=== PATIENT | female | born 1970 | race Caucasian/White ===

== ENCOUNTER 2021-01-25 07:27 | Inpatient (IN) | payer OTHER ==
[~2021-01-25] VITALS: Ht 162.6 cm; Wt 77.1 kg
[2021-01-25] MEDS ORDERED: HYDROMORPHONE 1 MG/1 ML DISP.SYRIN IV ONE (08:00)
[2021-01-25] MEDS ORDERED: ONDANSETRON 4 MG/2 ML VIAL IV ONE (08:00)
[2021-01-25] MEDS ORDERED: SWABABLE VALVE TRANSFER SET EA MC ONE (08:17)
[2021-01-25] MEDS ORDERED: IV NORMAL SALINE 250 ML IV ONE (08:18)
[2021-01-25] MEDS ORDERED: IOHEXOL 350 100 ML INFUS..BTL ONE (08:18)
[2021-01-25] MEDS ORDERED: ONDANSETRON 4 MG/2 ML VIAL ONE (09:16)
[2021-01-25] MEDS ORDERED: HYDROMORPHONE 1 MG/1 ML DISP.SYRIN ONE (09:16)
[2021-01-25 09:38] LABS: BASOPHILS % (AUTO) 0.8 % (0.0-2.0); EOSINOPHILS # (AUTO) 0.1 K/uL (0.0-0.7); HEMATOCRIT 44.2 % (31.2-41.9); HEMOGLOBIN 14.7 g/dL (10.9-14.3); LYMPHOCYTES # (AUTO) 2.2 K/uL (20.0-40.0); LYMPHOCYTES % (AUTO) 37.4 % (20.5-51.5); MEAN CORPUSCULAR HEMOGLOBIN 29.8 uug (24.7-32.8); MEAN CORPUSCULAR HGB CONC 33 g/dL (32.3-35.6); MEAN CORPUSCULAR VOLUME 89.4 fL (75.5-95.3); MONOCYTES # (AUTO) 0.5 K/uL (2.0-10.0); MONOCYTES % (AUTO) 8.9 % (0.0-11.0); NEUTROPHILS % (AUTO) 51.9 % (38.5-71.5); PLATELET COUNT (AUTO) 303 K/uL (179-408); RED BLOOD CELL COUNT(AUTO) 4.95 MIL/uL (3.63-4.92); WHITE BLOOD COUNT (AUTO) 5.8 K/uL (3.8-11.8)
[2021-01-25 09:52] LABS: CREATININE 0.7 mg/dL (0.6-1.3); POTASSIUM 4.1 mmol/L (3.5-5.1)
[2021-01-25 09:58] LABS: BILIRUBIN,DIRECT 0.1 mg/dL (0.0-0.2); BILIRUBIN,TOTAL 0.4 mg/dL (0.2-1.0); TOTAL PROTEIN, SERUM 6.8 g/dL (6.4-8.2)
[2021-01-25 12:43] LABS: *AMPHETAMINE, URINE NEGATIVE (NEGATIVE); *CANNABINOID, URINE NEGATIVE (NEGATIVE); *COCCAINE, URINE NEGATIVE (NEGATIVE); *OPIATE, URINE NEGATIVE (NEGATIVE); *PHENCYCLIDINE SCREEN,URINE NEGATIVE (NEGATIVE)
[2021-01-25] MEDS ORDERED: ASPIRIN 325 MG TABLET PO SCH (13:00)
[2021-01-25 14:00] VITALS: BP 125/87
[2021-01-25] MEDS ORDERED: ZOLPIDEM 5 MG TABLET PO PRN (14:00)
[2021-01-25] MEDS ORDERED: HYDROMORPHONE 1 MG/1 ML DISP.SYRIN IV PRN (14:00)
[2021-01-25] MEDS ORDERED: ENALAPRILAT DIHYDRATE 1.25 MG/1 ML VIAL IV PRN (14:00)
[2021-01-25] MEDS ORDERED: MAG HYDROX/AL HYDROX/SIMETH 30 ML LIQUID UDC PO PRN (14:00)
[2021-01-25] MEDS ORDERED: ONDANSETRON 4 MG/2 ML VIAL IV PRN (14:00)
[2021-01-25] MEDS: ASPIRIN EC 81 MG TABLET.DR PO SCH (15:18)
[2021-01-25 16:00] VITALS: BP 116/69
[2021-01-25 20:00] VITALS: BP 123/77
[2021-01-25] MEDS ORDERED: SIMVASTATIN 40 MG TABLET PO SCH (21:00)
[2021-01-25] MEDS: ACETAMINOPHEN 325 MG TABLET PO PRN (22:04)
[2021-01-26] VITALS: BP 103/60
[2021-01-26 00:18] VITALS: BP 103/60
[2021-01-26 00:39] LABS: *BILIRUBIN,URIN NEGATIVE (NEGATIVE); *BLOOD, URINE NEGATIVE (NEGATIVE); *CLARITY,URINE CLEAR (CLEAR); *COLOR,URINE YELLOW (YELLOW); *KETONES,URINE NEGATIVE (NEGATIVE); *UROBILINOGEN,URINE 0.2 E.U./dl (NORMAL); LEUKOCYTE ESTERASE ,URINE NEGATIVE (NEGATIVE); NITRITE, URINE NEGATIVE (NEGATIVE); PH,URINE 7.5 (5.0-8.0); UGLUCOSE NEGATIVE (NEGATIVE)
[2021-01-26 04:00] VITALS: BP 104/68
[2021-01-26] MEDS: ACETAMINOPHEN 325 MG TABLET PO PRN ×3 (06:25→17:16)
[2021-01-26 06:38] LABS: BASOPHILS # (AUTO) 0.1 K/uL (0.0-8.0); BASOPHILS % (AUTO) 0.8 % (0.0-2.0); EOSINOPHILS # (AUTO) 0.1 K/uL (0.0-0.7); EOSINOPHILS % (AUTO) 1.9 % (0.0-7.0); HEMOGLOBIN 13.5 g/dL (10.9-14.3); LYMPHOCYTES # (AUTO) 2.6 K/uL (20.0-40.0); LYMPHOCYTES % (AUTO) 41.1 % (20.5-51.5); MEAN CORPUSCULAR HGB CONC 34 g/dL (32.3-35.6); MEAN CORPUSCULAR VOLUME 88.9 fL (75.5-95.3); MONOCYTES # (AUTO) 0.6 K/uL (2.0-10.0); MONOCYTES % (AUTO) 9.7 % (0.0-11.0); NEUTROPHILS # (AUTO) 2.9 K/uL (1.8-8.9); NEUTROPHILS % (AUTO) 46.5 % (38.5-71.5); PLATELET COUNT (AUTO) 281 K/uL (179-408); WHITE BLOOD COUNT (AUTO) 6.3 K/uL (3.8-11.8)
[2021-01-26 06:56] LABS: CREATININE 0.7 mg/dL (0.6-1.3)
[2021-01-26] MEDS: ASPIRIN EC 81 MG TABLET.DR PO SCH (08:47)
[2021-01-26 12:00] VITALS: BP 122/65
[2021-01-26] MEDS ORDERED: SIMV-49 PO (12:29)
[2021-01-26] MEDS ORDERED: ASPI-618 PO (12:29)
[2021-01-26 15:52] VITALS: BP 142/76
== END 2021-01-26 17:30 | disposition home or self-care (01) | DRG 47 ==
LOC: ER 07:27 → TELE3 12:21
PROVIDERS: ADMIT Nurse Practitioner Acute Care; ATTEND Nurse Practitioner Acute Care
DX: G45.9 Transient cerebral ischemic attack, unspecified (principal); D68.59 Other primary thrombophilia; H53.2 Diplopia; E78.5 Hyperlipidemia, unspecified; Z20.822 Contact with and (suspected) exposure to COVID-19; M79.18 Myalgia, other site; Z74.09 Other reduced mobility; Z86.73 Personal history of transient ischemic attack (TIA), and cerebral infarction without residual deficits; R29.700 NIHSS score 0; R40.2142 Coma scale, eyes open, spontaneous, at arrival to emergency department; R40.2362 Coma scale, best motor response, obeys commands, at arrival to emergency department; R40.2252 Coma scale, best verbal response, oriented, at arrival to emergency department
CPT/HCPCS: 36415; 70030-TC; 70450; 70496; 70551; 71045; 72125; 84443; 85025; 85730; 93005; A4663; G0378; J1170; J2405; J7050; Q9967

== ENCOUNTER 2021-12-31 10:28 | Emergency (ER) | payer OTHER ==
[~2021-12-31] VITALS: Ht 162.6 cm; Wt 78.9 kg
[~2021-12-31 10:28] MED LIST: ASPI-618 PO; SIMV-49 PO
--- NOTE | 2021-12-31 10:40 | NUR ---
PATIENT COMPLAINING OF CHEST PAIN. TAKEN TO ROOM 2A WAITING TO BE SEEN BY ER PHYSICIAN
--- NOTE | 2021-12-31 10:44 | NUR ---
PATIENT BEING EVALUATED AT THIS TIME BY DR SEGOVIA
[2021-12-31] MEDS ORDERED: HYDROCODONE/APAP 10-325 MG TABLET ONE (10:57)
[2021-12-31] MEDS ORDERED: HYDROCODONE/APAP 10-325 MG TABLET PO ONE (11:00)
[2021-12-31 11:08] LABS: HEMATOCRIT 42.4 % (31.2-41.9); MEAN CORPUSCULAR HEMOGLOBIN 30.2 uug (24.7-32.8); MEAN CORPUSCULAR VOLUME 88.1 fL (75.5-95.3); PLATELET COUNT (AUTO) 312 K/uL (179-408)
--- NOTE | 2021-12-31 11:15 | NUR ---
Patient out of unit for ct scan via [facility].
[2021-12-31 11:16] LABS: CARBON DIOXIDE 27 mmol/L (21-32); CHLORIDE 104 mmol/L (98-107); CREATININE 0.8 mg/dL (0.6-1.3); GLUCOSE 106 mg/dL (74-106); POTASSIUM 3.9 mmol/L (3.5-5.1); UREA NITROGEN, BLOOD 14 mg/dL (7-18)
[2021-12-31 11:24] LABS: ALANINE AMINOTRANSFERASE 29 U/L (14-59); ALKALINE PHOSPHATASE 64 U/L (50-136); ASPARTATE AMINOTRANSFERASE 27 U/L (15-37); BILIRUBIN,DIRECT 0.1 mg/dL (0.0-0.2); BILIRUBIN,TOTAL 0.4 mg/dL (0.2-1.0); TOTAL PROTEIN, SERUM 6.9 g/dL (6.4-8.2)
--- NOTE | 2021-12-31 11:25 | NUR ---
Patient back from CT scan with no distress noted.
[2021-12-31] MEDS ORDERED: IV NORMAL SALINE 1000 ML BAG IV ONE ×2 (11:30)
[2021-12-31] MEDS ORDERED: ASPIRIN 325 MG TABLET PO ONE (11:45)
[2021-12-31] MEDS ORDERED: ASPIRIN 325 MG TABLET ONE (11:50)
--- NOTE | 2021-12-31 12:28 | NUR ---
Dr Flores accepted patient for transfer to another hospital. Waiting for transfer info.
--- NOTE | 2021-12-31 12:34 | NUR ---
Cristina called back from [facility] with transfer info. Patient will be going to [facility] room 210A with [facility] with ETA of 1hr. Call for report is .
--- NOTE | 2021-12-31 12:59 | NUR ---
Patient refused to be transfered to [facility] stating "I woulds rather go home." Dr Maldonado made aware. Called [facility] also and informed
--- NOTE | 2021-12-31 13:16 | NUR ---
IV removed. Catheter intact and site benign. Pressure and 4x4 gauze applied to site. No bleeding noted.
--- NOTE | 2021-12-31 13:18 | NUR ---
Patient does not wish to proceed with medical care recommended by Dr. Manzano ). Patient given information related to possible complications, up to and including , which could occur as a result of leaving the hospital at this time. Patient verbalizes understanding of risks involved due to leaving against medical advice. Patient has signed AMA form.
[2021-12-31 13:19] VITALS: BP 132/66
== END 2021-12-31 13:19 | disposition left against medical advice (07) ==
LOC: ER 10:29
DX: R07.9 Chest pain, unspecified (principal); I63.9 Cerebral infarction, unspecified; R29.810 Facial weakness; Z53.29 Procedure and treatment not carried out because of patient's decision for other reasons; Z20.822 Contact with and (suspected) exposure to COVID-19; E78.5 Hyperlipidemia, unspecified; Z86.73 Personal history of transient ischemic attack (TIA), and cerebral infarction without residual deficits; Z79.899 Other long term (current) drug therapy
CPT/HCPCS: 36415; 70450; 71045; 80048; 80076; 84484 ×2; 85025; 85379; 85730; 87426; 93005; 96360; 99291; J7040; A4663

== ENCOUNTER 2023-02-18 00:12 | Emergency (ER) | payer OTHER ==
[~2023-02-18] VITALS: Ht 162.6 cm; Wt 79.4 kg
--- NOTE | 2023-02-18 00:30 | NUR ---
Dr. Coats at bedside for MSE.
[2023-02-18] MEDS ORDERED: HYDROMORPHONE 1 MG/1 ML DISP.SYRIN IV ONE (00:45)
[2023-02-18] MEDS ORDERED: IV NORMAL SALINE 1000 ML BAG IV ONE (00:45)
[2023-02-18] MEDS ORDERED: PROCHLORPERAZINE EDISYLATE 10 MG/2 ML VIAL IV ONE (00:45)
[2023-02-18] MEDS ORDERED: PROCHLORPERAZINE EDISYLATE 10 MG/2 ML VIAL ONE (00:53)
[2023-02-18] MEDS ORDERED: HYDROMORPHONE 1 MG/1 ML DISP.SYRIN ONE (00:53)
[2023-02-18 01:13] LABS: HEMATOCRIT 41.2 % (31.2-41.9); MEAN CORPUSCULAR HEMOGLOBIN 29.9 uug (24.7-32.8); MEAN CORPUSCULAR VOLUME 88.5 fL (75.5-95.3); PLATELET COUNT (AUTO) 276 K/uL (179-408)
[2023-02-18 01:28] LABS: CREATININE 0.8 mg/dL (0.6-1.3); POTASSIUM 3.8 mmol/L (3.5-5.1)
[2023-02-18 01:56] LABS: BILIRUBIN,DIRECT 0.1 mg/dL (0.0-0.2); BILIRUBIN,TOTAL 0.4 mg/dL (0.2-1.0); TOTAL PROTEIN, SERUM 6.5 g/dL (6.4-8.2)
--- NOTE | 2023-02-18 02:00 | NUR ---
Pt out of ER for CT.
[2023-02-18] MEDS ORDERED: IOHEXOL 300MG/ML 100 ML INFUS..BTL ONE (02:03)
[2023-02-18] MEDS ORDERED: SWABABLE VALVE TRANSFER SET EA MC ONE (02:04)
[2023-02-18] MEDS ORDERED: IV NORMAL SALINE 250 ML IV ONE (02:04)
--- NOTE | 2023-02-18 02:31 | NUR ---
Pt back to ER from CT.
[2023-02-18] MEDS ORDERED: BLOO-1731 MC (05:15)
[2023-02-18] MEDS ORDERED: METO-295 PO (05:15)
[2023-02-18 05:31] VITALS: BP 120/95
--- NOTE | 2023-02-18 05:31 | NUR ---
Patient discharged to home in stable condition. Written and verbal after care instructions given. Patient verbalizes understanding of instructions. Stressed follow up or return to ER for worsening s/s. Patient out of ER with steady gait, no acute signs of distress, VSS, all belongings taken, IV site discontinued, provided with copies of lab results
== END 2023-02-18 05:32 | disposition home or self-care (01) ==
LOC: ER 00:21
DX: R11.2 Nausea with vomiting, unspecified (principal); K31.84 Gastroparesis; R10.9 Unspecified abdominal pain; R73.03 Prediabetes; E78.5 Hyperlipidemia, unspecified; Z79.82 Long term (current) use of aspirin; Z79.899 Other long term (current) drug therapy
CPT/HCPCS: 99285; 74177; 96374; 96361; 96375; 80076; 80048; 83036; 83690; 83735; 85025; 36415; Q9967; J0780; J1170; J7040; A4663

== ENCOUNTER 2024-12-18 12:07 | Emergency (ER) | payer OTHER ==
[~2024-12-18] VITALS: Ht 162.6 cm; Wt 79.4 kg
[~2024-12-18 12:07] MED LIST changes: +BLOO-1731 MC; +METO-295 PO
[2024-12-18] MEDS ORDERED: HYDROMORPHONE 1 MG/1 ML DISP.SYRIN ONE (12:42)
[2024-12-18] MEDS ORDERED: ONDANSETRON 4 MG/2 ML VIAL ONE (12:42)
[2024-12-18 12:53] LABS: BASOPHILS % (AUTO) 0.8 % (0.0-2.0); EOSINOPHILS # (AUTO) 0.1 K/uL (0.0-0.7); EOSINOPHILS % (AUTO) 1.3 % (0.0-7.0); HEMATOCRIT 41.1 % (31.2-41.9); HEMOGLOBIN 13.9 g/dL (10.9-14.3); LYMPHOCYTES # (AUTO) 1.1 K/uL (0.8-4.8); LYMPHOCYTES % (AUTO) 20.3 % (20.5-51.5); MEAN CORPUSCULAR HEMOGLOBIN 29.6 uug (24.7-32.8); MEAN CORPUSCULAR HGB CONC 34 g/dL (32.3-35.6); MEAN CORPUSCULAR VOLUME 87.7 fL (75.5-95.3); MONOCYTES # (AUTO) 0.8 K/uL (0.1-1.30); MONOCYTES % (AUTO) 15.1 % (0.0-11.0); NEUTROPHILS # (AUTO) 3.3 K/uL (1.8-8.9); NEUTROPHILS % (AUTO) 62.5 % (38.5-71.5); PLATELET COUNT (AUTO) 284 K/uL (179-408); RED BLOOD CELL COUNT(AUTO) 4.69 MIL/uL (3.63-4.92); RED CELL DISTRIBUTION WIDTH 13.7 % (12.3-17.7); WHITE BLOOD COUNT (AUTO) 5.3 K/uL (3.8-11.8)
[2024-12-18 12:57] LABS: *BILIRUBIN,URIN NEGATIVE (NEGATIVE); *CLARITY,URINE CLEAR (CLEAR); *COLOR,URINE YELLOW (YELLOW); *KETONES,URINE TRACE (NEGATIVE); *PROTEIN,URINE 1+ (NEGATIVE); *UROBILINOGEN,URINE 0.2 E.U./dl (NORMAL); LEUKOCYTE ESTERASE ,URINE 2+ (NEGATIVE); NITRITE, URINE NEGATIVE (NEGATIVE); PH,URINE 5.5 (5.0-8.0); UGLUCOSE NEGATIVE (NEGATIVE)
[2024-12-18 12:57] LABS: DIFFERENTIAL COMMENT 1
[2024-12-18 12:58] LABS: *BLOOD, URINE TRACE (NEGATIVE)
[2024-12-18] MEDS: ONDANSETRON 4 MG/2 ML VIAL IV ONE (13:00)
[2024-12-18] MEDS: HYDROMORPHONE 1 MG/1 ML DISP.SYRIN IV ONE (13:00)
[2024-12-18 13:01] LABS: CALCIUM 8.6 mg/dL (8.5-10.1); CREATININE 0.8 mg/dL (0.6-1.3); POTASSIUM 3.8 mmol/L (3.5-5.1)
[2024-12-18 13:07] LABS: ALBUMIN 3.2 g/dL (3.4-5.0); BILIRUBIN,DIRECT 0.1 mg/dL (0.0-0.2); BILIRUBIN,TOTAL 0.4 mg/dL (0.2-1.0); TOTAL PROTEIN, SERUM 6.2 g/dL (6.4-8.2)
[2024-12-18 13:35] LABS: BACTERIA,URINE MANY /HPF (NONE SEEN); SQUAMOUS EPITHELIAL CELL,UR MANY /HPF (NONE SEEN); WBC,URINE 20-50 /HPF (0-3)
[2024-12-18] MEDS ORDERED: IOHEXOL 300MG/ML 100 ML INFUS..BTL ONE (13:42)
[2024-12-18] MEDS ORDERED: SWABABLE VALVE TRANSFER SET EA MC ONE (13:42)
[2024-12-18] MEDS ORDERED: IV NORMAL SALINE 250 ML IV ONE (13:42)
[2024-12-18 15:54] LABS: BAND % (MANUAL) 1 % (0-10); LYMPHOCYTES % (MANUAL) 22 % (20-40); MONOCYTES % (MANUAL) 12 % (2-10); NEUTROPHILS % (MANUAL) 65 % (42-75); PLATELET ESTIMATE ADEQUATE
[2024-12-18 15:55] LABS: ANISOCYTOSIS 1+; TEAR DROP CELLS 1+
[2024-12-18] MEDS ORDERED: ONDA4TAB5 PO (17:01)
[2024-12-18] MEDS ORDERED: DICY20TA11 PO (17:01)
[2024-12-18] MEDS ORDERED: GUAI5SYR4 PO ×2 (17:01→17:04)
[2024-12-18 17:33] VITALS: BP 140/81; TEMP 98.1; O2SAT 97
== END 2024-12-18 17:09 | disposition home or self-care (01) ==
LOC: ER 12:07
DX: B34.9 Viral infection, unspecified (principal); R10.31 Right lower quadrant pain; R09.81 Nasal congestion; R05.8 Other specified cough; J34.89 Other specified disorders of nose and nasal sinuses; Z79.82 Long term (current) use of aspirin; Z86.73 Personal history of transient ischemic attack (TIA), and cerebral infarction without residual deficits
CPT/HCPCS: 99285; 74177; 96374; 96375; 80076; 80048; 81001; 83690; 85025; 87186; 87086; 87077; 36415; 85007; J2405; Q9967; J1171; J7040; A4606; A4663

== ENCOUNTER 2025-07-10 15:53 | Emergency (ER) | payer OTHER ==
[~2025-07-10] VITALS: Ht 162.6 cm; Wt 81.6 kg
[~2025-07-10 15:53] MED LIST changes: +DICY20TA11 PO; +GUAI5SYR4 PO; +ONDA4TAB5 PO
[2025-07-10 15:54] VITALS: BP 136/92
[2025-07-10 17:08] LABS: PLATELET COUNT (AUTO) 295 K/uL (179-408); RED BLOOD CELL COUNT(AUTO) 4.62 MIL/uL (3.63-4.92); RED CELL DISTRIBUTION WIDTH 13.6 % (12.3-17.7); WHITE BLOOD COUNT (AUTO) 7.2 K/uL (3.8-11.8)
[2025-07-10 17:13] LABS: *BILIRUBIN,URIN NEGATIVE (NEGATIVE); *BLOOD, URINE 2+ (NEGATIVE); *CLARITY,URINE SLIGHTLY CLOUDY (CLEAR); *COLOR,URINE YELLOW (YELLOW); *KETONES,URINE 2+ (NEGATIVE); *PROTEIN,URINE NEGATIVE (NEGATIVE); *UROBILINOGEN,URINE 0.2 E.U./dl (NORMAL); LEUKOCYTE ESTERASE ,URINE TRACE (NEGATIVE); NITRITE, URINE POSITIVE (NEGATIVE); UGLUCOSE NEGATIVE (NEGATIVE)
[2025-07-10 17:15] LABS: CREATININE 0.6 mg/dL (0.6-1.3); SODIUM SERUM 142 mmol/L (136-145); UREA NITROGEN, BLOOD 15 mg/dL (7-18)
[2025-07-10 17:20] LABS: SQUAMOUS EPITHELIAL CELL,UR FEW /HPF (NONE SEEN)
[2025-07-10 17:21] LABS: ASPARTATE AMINOTRANSFERASE 34 U/L (15-37); TOTAL PROTEIN, SERUM 6.8 g/dL (6.4-8.2)
[2025-07-10] MEDS ORDERED: IOHEXOL 300MG/ML 100 ML INFUS..BTL ONE (17:30)
[2025-07-10] MEDS ORDERED: CEFD300C3 PO (18:38)
[2025-07-10] MEDS ORDERED: LIDOCAINE HCL 1% 20 ML VIAL ONE (19:11)
[2025-07-10 19:24] VITALS: BP 130/88; TEMP 98; O2SAT 97
== END 2025-07-10 19:25 | disposition home or self-care (01) ==
LOC: ER 16:06
DX: R10.9 Unspecified abdominal pain (principal); G89.29 Other chronic pain; I51.9 Heart disease, unspecified; E78.5 Hyperlipidemia, unspecified; K31.84 Gastroparesis; K76.0 Fatty (change of) liver, not elsewhere classified; N39.0 Urinary tract infection, site not specified; Z79.82 Long term (current) use of aspirin; Z86.73 Personal history of transient ischemic attack (TIA), and cerebral infarction without residual deficits; Z90.49 Acquired absence of other specified parts of digestive tract
CPT/HCPCS: 99285; 74177; 80076; 80048; 81001; 85025; 87086; 84484; 36415; 93005; 96372; 83605; J0696; J3490; Q9967; 87077; A4606; A4663